=== PATIENT | female | born 1945 | race Caucasian/White ===

== ENCOUNTER 2022-08-16 15:18 | Outpatient (CLI) | payer MEDICARE | END 2022-08-16 15:19 | disposition home or self-care (01) | LOC: CSHMRI 15:18 | PROVIDERS: ATTEND Family Medicine | DX: M54.14 Radiculopathy, thoracic region (principal); M47.814 Spondylosis without myelopathy or radiculopathy, thoracic region; M48.56XA Collapsed vertebra, not elsewhere classified, lumbar region, initial encounter for fracture | CPT/HCPCS: 72146 ==